=== PATIENT | female | born 1975 | race Caucasian/White ===

== ENCOUNTER 2019-09-21 15:30 | Outpatient (RCR) | payer OTHER, BC, SELFPAY ==
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
--- NOTE | 2019-09-16 07:57 | PCPTNOTE ---
Patient called & cancelled scheduled appointment this date due to being sick.
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
--- NOTE | 2019-10-08 10:04 | PCPTNOTE ---
Admitting Provider: Attending Provider: PHYSICIAN NOT ON STAFF Patient:Haven Kahn Date of :1975 Patient has not returned for any further treatments since 09/21/2019, therefore she will be discharged from therapy at this time. The goals have been partially achieved. Thank you for referring this patient to [facility]. Please review, sign, date and return this discharge summary RAPHAEL. I have been updated about the patient's current status and I agree with discharge from the above service at this time. Referring Physician Date
== END 2019-10-11 11:03 | disposition home or self-care (01) ==
LOC: ANHPT 15:30
PROVIDERS: PCP Nurse Practitioner Family
DX: S16.1XXD Strain of muscle, fascia and tendon at neck level, subsequent encounter (principal)
CPT/HCPCS: 97014; 97110; 97140; 97161; G0283